=== PATIENT | female | born 1990 | race Caucasian/White ===

== ENCOUNTER 2016-06-20 22:35 | Emergency (ER) | payer OTHER ==
[2016-06-20 23:37] LABS: HCG,QUALITATIVE URINE NEGATIVE
[2016-06-21] MEDS ORDERED: ONDANSETRON 4 MG ODT TAB ONE (00:15)
[2016-06-21 00:29] LABS: SPECIFIC GRAVITY 1.025 (1.001-1.030); URINE BILIRUBIN NEGATIVE (NEGATIVE); URINE BLOOD 4+ (NEGATIVE); URINE GLUCOSE (UA) NEGATIVE (NEGATIVE); URINE LEUKOCYTE ESTERASE TRACE (NEGATIVE); URINE NITRITE POSITIVE (NEGATIVE); URINE PROTEIN 1+ (NEGATIVE); URINE UROBILINOGEN NORMAL (0-1 mg/dl)
[2016-06-21 00:31] LABS: URINE APPEARANCE SL CLOUDY; URINE COLOR DARK YELLOW
[2016-06-21 00:39] LABS: URINE RBC >100 /hpf
[2016-06-21 00:40] LABS: URINE BACTERIA 3+; URINE CRYSTALS 8-12 CA OXALATE /hpf; URINE MUCUS 3+
[2016-06-21] MEDS ORDERED: SULFAMETHOXAZOLE 800 MG/TRIMETHOPRIM 160 MG TABLET ONE (01:30)
[2016-06-23 12:26] LABS: CHLAMYDIA BD Negative (Negative); N.GONORRHOEAE BD Negative (Negative); SOURCE Urine (())
== END 2016-06-21 01:57 | disposition home or self-care (01) ==
LOC: ED 22:35
DX: N39.0 Urinary tract infection, site not specified (principal); E03.9 Hypothyroidism, unspecified; F17.210 Nicotine dependence, cigarettes, uncomplicated; Z88.0 Allergy status to penicillin
CPT/HCPCS: 87491; 87591; 81025; 87086; 87186; 81001; 99283 ×2; A9270 ×2